=== PATIENT | female | born 1945 | race Caucasian/White ===

== ENCOUNTER 2025-10-31 18:44 | Emergency (ER) | payer MEDICARE, OTHER ==
[~2025-10-31] VITALS: Ht 167.6 cm; Wt 94.2 kg
[~2025-10-31 18:44] MED LIST: LEVO75TA PO; SIMV-42 PO
--- NOTE | 2025-10-31 19:06 | Physician Documentation ---
History of Present Illness ~ Chief Complaint: Hip pain Stated Complaint: L HIP PAIN/FALL NO BLOOD THINNERS Time Seen by MD: 21:16 HPI This is a 80-year-old female with a history of chronic left hip pain who presents with increased left hip pain following a ground level trip and fall, she reports she did not fall all the way to the ground and did not strike her head or lose consciousness. Patient reports not on head thinners. Date: Oct 31, 2025 Time: 21:16 Additional note by Emanuel Knowles, DO: I took over the care of this patient from previous physician. I reviewed any previous notes available, obtain my own history, review of systems and physical examination was performed by myself. This is a very pleasant 80-year-old female who confirms the story. She had been experiencing left hip pain for about a week and a half, has been diagnosed with bursitis, has a received physical therapy. She has a mechanical ground level fall today because her hip gave out. She complains of worsening left hip pain in the wanted to get an x-ray to make sure that it is no fracture. Able to ambulate. Did not attempt to treat it. Denies any other concerns. Medication Reconciliation Allergies: Coded Allergies: Penicillins (Verified Allergy, Mild, HIVES, 10/31/25) Scheduled Levothyroxine Sodium* (Synthroid*), 150 MCG PO QPM, (Reported) Simvastatin* (Zocor*), 1 TAB PO QPM, (Reported) Past Medical History Past Medical History: Chronic Pain Review of Systems ROS As stated above in the HPI, otherwise all systems are reviewed and negative. Physical Exam Vital Signs: Temperature: 98.3, Source: Oral, Heart Rate: 75, Respiratory Rate: 16, BP: 163/83, Pulse Oximetry: 96, Weight: 94.200 Oxygen Flow Rate: 0 Physical Exam Physical examination: GENERAL: Awake, alert, oriented, GCS 15, no apparent distress, non-toxic appearing, answers questions, follows commands appropriately. Examined in triage, accompanied by spouse. HEENT: Atraumatic, normocephalic, pupils equal, extraocular muscles intact Active gross movements, sclerae anicteric, mucus membranes moist, no stridor. NECK: Midline, no JVD CARDIOVASCULAR: Good skin perfusion without evidence of pallor, mottling. PULMONARY: Nonlabored, symmetric chest rise, no audible wheezing, no accessory muscle use, no respiratory distress, speaking in full sentences. GASTROINTESTINAL: Not distended. NEUROLOGIC: Lucid with normal mental status. Normal facial symmetry. Moves all extremities symmetrically and with purpose. No truncal ataxia. Speech is fluid without evidence of dysarthria or aphasia, no focal deficits appreciated. EXTREMITIES: Acute deformities Skin: warm, dry PSYCHIATRIC: Normal affect, normal insight, normal concentration. Focused exam: No deformity to left hip, no shortening or external rotation. The patient is able to ambulate. Progress Results/Orders Results/Orders Orders - EMANUEL KNOWLES DO Hip Unilateral 2-3 Views (10/31/25 19:01) Completed Orders - EMANUEL KNOWLES DO Hip Unilateral 2-3 Views (10/31/25 19:01) Vital Signs 10/31/25 18:56 Temp 98.3 Pulse 75 Resp 16 B/P (MAP) 163/83 Pulse Ox 96 O2 Flow Rate 0 Medical Decision Making Additional information obtaine: family Findings MSE performed in triage and patient returned to ED lobby by nursing staff to await available ED room Facility Status: ED Holds, RME process The plan was discussed with the patient, who demonstrates clear understanding of the plan and is in agreement with the plan unless otherwise noted in the chart. All questions have been answered, all concerns were addressed unless otherwise documented. I was available throughout their ED stay for frequent reassessment and questions. Differential Diagnoses (considered and possible or likely): [Ground level fall, acute traumatic pain, hip fracture, hip dislocation, arthritis, bursitis] ??Differential Diagnoses (considered and unlikely, not requiring evaluation currently): [No evidence of neurovascular injury] MDM Data Please see [facility] for the following: Independent Historians and external Records Review. Historian: [Patient] Independent Historians: ?[Family, record review] Medication Management: [Reviewed medication list] Social History and determinants: [Reviewed] Please see the body of the note for the following: Any independent interpretations of ECG, imaging studies. All vitals signs/haemodynamics, ordered tests were independently reviewed and interpreted by myself. Nursing triage complaint and vitals reviewed, additional nursing notes were reviewed as available and I agree unless otherwise noted or documented in contradiction in the chart Vital Signs: Independently reviewed Labs: Independently interpreted Imaging: Independently interpreted Old Medical Records: Independently reviewed, see [facility] for relevant summary and information Additionally notably showing: [Hemodynamically stable. X-ray shows no fracture or dislocation.] Tests considered but not ordered include: [Hematologic workup has been considered but does not appear to be necessary given mechanical nature of the injury.] Social Determinants of Health Impact: Patient was [facility] in [facility] [place] healthcare due to below par ratio of patient to medical providers. [] Comorbid Conditions Impacting Present Evaluation and Care/Treatment: [Chronic hip pain] Management Discussions with other Healthcare Providers: [None] Treatment and Disposition Medication Management (Given or considered): []. See EMR for details Consideration for Hospitalization/Escalation/Deescalation of Care: Admission for observation has been considered, [however the patient is able to tolerate p.o., their symptoms are controlled, they are able to rely on oral medications, and their chief complaint/diagnosis can be managed on outpatient basis.] ?ED Course:?[No clinical deterioration] ?Shared decision making:?[Patient is hemodynamically stable for discharge home with follow with their primary care provider. [ ] Specific and cautious return precautions provided and discussed with full understanding. Any incidental findings were also discussed and follow up recommendations given. [I explained to the patient that she is likely going to need an MRI that should be ordered by her PCP.] All questions answered. Patient/family were able to verbalize back return precautions. Patient/family agree to plan. Copies of imaging and laboratory studies were provided.] Code status:?FULL Please see the full Electronic Medical Record for full details of nursing documentation, medications list, other records of complete past medical history and conditions, vital signs, laboratory studies, and any radiologic study interpretations by radiologists. Portions of this note were completed using [employer] dictation software and as a result there may exist minor errors in spelling. I have reviewed elements of past family and social history and agree as included in note. Differential Dx:Considerations: Include: Other (See body of the main note for differential diagnosis) Departure Disposition: 01 HOME / SELF CARE / HOMELESS Impression: Primary Impression: Left hip pain Discharge Instructions: Hip Pain Additional Instructions: Please discuss with the primary care provider your hip pain as you are likely going to need an MRI Referrals: NO PRIMARY CARE PROVIDER (PCP) Education Educated: Patient, Family Educated regarding: diagnosis, treatment, prognosis, need for follow up Signature Scribe Signature: No scribe Attestation: The note accurately reflects work and decisions made by me.Emanuel Knowles, 10/31/25 21:19 VERONICA OLIVARES Oct 31, 2025 19:06 EMANUEL KNOWLES DO Oct 31, 2025 21:20
--- NOTE | 2025-10-31 19:27 | RADIOLOGY REPORT ---
EXAM: DI HIP UNILATERAL 2-3 VIEWS INDICATION: HIP PAIN AFTER GLF TECHNIQUE:: 3 views of the left hip COMPARISON: None FINDINGS/IMPRESSION: No radiographic evidence of an acute osseous abnormality. There is no acute fracture, osseous malalignment, or aggressive focal osseous lesion. Phleboliths in the pelvis. Mild stool burden. Correlate for constipation. Mild degenerative change of bilateral hips.
[2025-10-31 22:27] VITALS: BP 132/78; PULSE 78; RESP 16; TEMP 98.2; O2SAT 99
== END 2025-10-31 22:28 | disposition home or self-care (01) ==
LOC: ER 18:46
DX: M25.552 Pain in left hip (principal); G89.29 Other chronic pain; Z88.0 Allergy status to penicillin; Z79.899 Other long term (current) drug therapy
CPT/HCPCS: 73502; 99283